=== PATIENT | female | born 1945 | race Caucasian/White ===

== ENCOUNTER → 2017-02-05 | Outpatient (CLI) | payer MEDICARE ==
[~2017-02-05] MED LIST: BAYER CHEWABLE81 MG PO; BYSTOLIC 5 MG5 MG PO; CO Q-10100 MG PO; COZAAR100 MG PO; ESTRACE0.5 MG TOP; FISH OIL + D31 EACH PO; LIPITOR20 MG PO; MULTIVITAMINS1 EAC7 PO; PREDNISONE 20 M20 M1 PO; SYNTHROID112 MCG PO
== END ==
LOC: M.RAD 02-04 10:00
DX: Z12.31 Encounter for screening mammogram for malignant neoplasm of breast (principal)

== ENCOUNTER → 2018-11-11 | Outpatient (CLI) | payer MEDICARE | LOC: M.CT 09:00 | DX: G70.00 Myasthenia gravis without (acute) exacerbation (principal); E04.1 Nontoxic single thyroid nodule ==

== ENCOUNTER → 2018-11-17 | Outpatient (CLI) | payer MEDICARE | LOC: M.ULTRA 09:47 | DX: E04.2 Nontoxic multinodular goiter (principal) ==

== ENCOUNTER → 2018-12-22 | Outpatient (CLI) | payer MEDICARE ==
--- NOTE | 2018-12-24 07:54 | SLEEP ---
[address] [address] SLEEP STUDY REPORT Name: VINCE DE LOS SANTOS Room: [facility]#: [id number] Admission: 12/22/18 Attend Phys: Jesus Blake MD Discharge: Date of : 47 Report #: [id number] THIS REPORT FOR: //name// CC: CONSUELO Blake MD This study has been reviewed in its entirety by a board certified sleep specialist DATE OF SERVICE: 12/22/2018 ATTENDING PHYSICIAN: Dr. Jesus Blake. The patient is 73 years old who weighs 190 pounds with a BMI of 34.7. The patient was referred to [facility] for sleep study. The patient has a history of sleep apnea and has been on CPAP. The patient was referred for requalification of her CPAP. During the night study, the patient spent 429 minutes in bed and slept for 251 minutes with a low sleep efficiency of 58%. Sleep latency was 18.2 minutes with a REM latency of 137 minutes. Sleep architecture showed normal stage 1 sleep, increased stage 2 sleep, normal slow wave and reduced REM sleep. Oximetry data revealed that average saturations remained around 92% , lowest of 84%. 14.5 minutes were spent with saturations of < 89%. EKG monitoring revealed an average heart rate of 53 beats per minute. No sustained arrhythmias observed. No clinically significant PLM seen. During the night study, the patient had 33 obstructive apneas, no mixed apneas, 1 central apnea and 34 hypopneas. The patient's apnea hypopnea index was 16.2 per hour with a REM index of 11.3 per hour and a supine index of 26.7 per hour. Due to reduced sleep time, CPAP could not be initiated. IMPRESSION: 1. Moderate sleep apnea-hypopnea syndrome with an apnea-hypopnea index of 16.2 per hour. 2. Mild nocturnal hypoxia secondary to obstructive sleep apnea. 3. No clinically significant periodic limb movements. 4. Reduced sleep efficiency resulting from sleep maintenance insomnia. RECOMMENDATIONS: [place] [address] SLEEP STUDY REPORT Name: VINCE DE LOS SANTOS Room: [facility] Booker#: [id number] Admission: 12/22/18 Attend Phys: Jesus Blake MD Discharge: Date of : 47 Report #: [id number] 1. The patient would benefit from return to the sleep lab for CPAP titration study. Alternate treatment option would include use of an oral appliance. 2. Once the patient is optimally treated, then follow up in 4-6 weeks to assess compliance with treatment and to document clinical improvement. 3. Weight loss is advised. 4. Avoid [employer] depressants. 5. Cautioned regarding driving until symptoms of sleep apnea resolve with the above recommendations. <ELECTRONICALLY SIGNED> By: Niels Curiel MD 12/24/18 [id number] 1938Aromelia Curiel MD /subhash
== END ==
LOC: M.SLEEPLAB 19:53
DX: G47.30 Sleep apnea, unspecified (principal); G47.33 Obstructive sleep apnea (adult) (pediatric); R09.02 Hypoxemia